=== PATIENT | female | born 1965 | race Caucasian/White ===

== ENCOUNTER 2019-01-04 20:56 | Inpatient (IN) | payer SELFPAY ==
[~2019-01-04] VITALS: Ht 149.9 cm; Wt 115.7 kg
[2019-01-04 21:00] VITALS: Ht 149.9 cm; Wt 115.7 kg
[2019-01-04 21:37] LABS: PLATELET COUNT 234 x10^3mcL (130-400); RED CELL DISTRIBUTION WIDTH 13.1 % (11.5-14.5)
[2019-01-04 21:43] LABS: CALCIUM 8.8 mg/dL (8.5-10.1); CARBON DIOXIDE 24.9 mmol/L (21-32); CHLORIDE SERUM 95 mmol/L (98-107); CREATININE SERUM 0.9 mg/dL (0.6-1.0); GFR1 > 60 mL/min; GLUCOSE SERUM 292 mg/dL (74-106); POTASSIUM SERUM 3.4 mmol/L (3.5-5.1); SODIUM SERUM 132 mmol/L (136-145)
[2019-01-04 21:47] LABS: ALKALINE PHOSPHATASE 239 U/L (46-116); ALT/SGPT 51 U/L (14-59); AST/SGOT 34 U/L (15-37); BILIRUBIN TOTAL 1.4 mg/dL (0.20-1.00); TOTAL PROTEIN, SERUM 7.8 g/dL (6.4-8.2)
[2019-01-04 21:49] LABS: ALBUMIN 2.6 g/dL (3.4-5.0)
[2019-01-04 21:58] LABS: BAND NEUTROPHIL 6 % (0-10); BASOPHIL 0 % (0-2); MONOCYTE 5 % (0-7); SEGMENTED NEUTROPHILS 78 % (37-75)
[2019-01-04 21:59] LABS: PLATELET MORPHOLOGY PLATELETS NORMAL; rbc morphology (normal/abnorm) NORMAL (NORMAL)
[2019-01-05 00:25] LABS: microscopic required? YES; urine erythrocyte TRACE (NEGATIVE)
[2019-01-05 00:45] LABS: MAGNESIUM 1.4 mg/dL (1.8-2.4); PHOSPHOROUS 1.6 mg/dL (2.5-4.9)
[2019-01-05 00:49] LABS: CHOLESTEROL/HDL RATIO 5.7
[2019-01-05 01:18] VITALS: BP 106/66
[2019-01-05 04:48] VITALS: BP 108/62
[2019-01-05 07:07] LABS: PLATELET COUNT 191 x10^3mcL (130-400); RED CELL DISTRIBUTION WIDTH 13.3 % (11.5-14.5)
[2019-01-05 08:02] LABS: CARBON DIOXIDE 25.1 mmol/L (21-32); CHLORIDE SERUM 99 mmol/L (98-107); CREATININE SERUM 0.9 mg/dL (0.6-1.0); GFR1 > 60 mL/min; GLUCOSE SERUM 295 mg/dL (74-106); MAGNESIUM 1.6 mg/dL (1.8-2.4); PHOSPHOROUS 2.8 mg/dL (2.5-4.9); POTASSIUM SERUM 3.7 mmol/L (3.5-5.1); SODIUM SERUM 135 mmol/L (136-145)
[2019-01-05 09:17] VITALS: BP 135/78
[2019-01-05 09:48] LABS: BAND NEUTROPHIL 7 % (0-10); MONOCYTE 2 % (0-7); SEGMENTED NEUTROPHILS 84 % (37-75)
[2019-01-05 09:51] LABS: PLATELET MORPHOLOGY PLATELETS NORMAL; rbc morphology (normal/abnorm) ABNORMAL (NORMAL)
== END 2019-01-05 14:36 | disposition left against medical advice (07) | DRG 871 ==
LOC: ED 20:56 → MU 01-05 00:03 → DU 01-05 00:58 → MU 01-05 01:04 → DU 01-05 01:16
PROVIDERS: Emergency Medicine; ADMIT Internal Medicine
DX: A41.9 Sepsis, unspecified organism (principal); N17.0 Acute kidney failure with tubular necrosis; M72.6 Necrotizing fasciitis; L03.115 Cellulitis of right lower limb; N39.0 Urinary tract infection, site not specified; E87.1 Hypo-osmolality and hyponatremia; E87.6 Hypokalemia; Z53.21 Procedure and treatment not carried out due to patient leaving prior to being seen by health care provider; E83.39 Other disorders of phosphorus metabolism; E83.42 Hypomagnesemia; R74.0 Nonspecific elevation of levels of transaminase and lactic acid dehydrogenase [LDH]; E11.9 Type 2 diabetes mellitus without complications; Z88.5 Allergy status to narcotic agent; Z90.49 Acquired absence of other specified parts of digestive tract
CPT/HCPCS: 82962; J2543; J3370; J3475; J7030; J7050; Q0092; Q9967